=== PATIENT | female | born 1955 | race Caucasian/White ===

== ENCOUNTER 2016-05-07 12:28 | Emergency (ER) | payer BC ==
[2016-05-07 12:48] VITALS: BP 116/84; PULSE 65; RESP 18; TEMP 98.2; O2SAT 99
[2016-05-07] MEDS ORDERED: ONDANSETRON DISINTEGRATING 4 MG TAB PO ONE (13:15)
[2016-05-07] MEDS ORDERED: IBUPROFEN 200 MG TAB PO ONE (13:15)
--- NOTE | 2016-05-07 13:18 | UCPHY ---
H & P Time Seen by Provider: 05/07/16 13:06 Patient Type: Established HPI/ROS: This patient complains of a cough that started last night associated with headache generalized in location similar to previous headaches. She has associated fevers and chills. She also describes myalgias. Finally, she reports nasal congestion associated with the symptoms. No exacerbating or alleviating factors are noted. ROS: No other constitutional symptoms besides those mentioned and HPI. HEENT: No significant ear pain or sore throat. No other complaints pulmonary: No pleuritic pain or respiratory distress. Cardiovascular: No complaints GI: Positive nausea but no vomiting. 10 point ROS is otherwise negative Past Medical/Surgical History: Hypothyroid Anxiety. 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 She is not currently working. Smoking Status: Never smoked Physical Exam: General Appearance: Alert, no distress. Eyes: Pupils equal and round no pallor or injection. ENT, Mouth: Mucous membranes moist. Clear clear nasal discharge. No sinus tenderness to percussion. Ears: External canals and TMs clear bilaterally. Oropharynx is clear with no significant erythema or exudates. Respiratory: There are no retractions, lungs are clear to auscultation. Cardiovascular: Regular rate and rhythm. No murmur gallop or rub. Gastrointestinal: Abdomen is soft and nontender, no masses, bowel sounds normal. Neurological: Alert with no focal deficits Skin: Warm and dry, no rashes. Musculoskeletal: Neck is supple nontender. Extremities are symmetrical, full range of motion. Psychiatric: Mood and affect are normal. DIFFERENTIAL DIAGNOSIS: After history and physical exam differential diagnosis was considered for influenza, URI with cough, viral syndrome Constitutional: Initial Vital Signs Temperature (C) 36.8 C 05/07/16 12:45 Heart Rate 65 05/07/16 12:45 Respiratory Rate 18 05/07/16 12:45 Blood Pressure 116/84 H 05/07/16 12:45 O2 Sat (%) 99 05/07/16 12:45 O2 Delivery Mode Room Air Allergies/Adverse Reactions: morphine Allergy (Verified 05/07/16 12:42) Home Medications: Medication Instructions Recorded DULoxetine [Cymbalta 60 MG (RX)] 08/02/14 Synthroid 88 mcg (RX) 08/02/14 clonAZEPAM [Klonopin] 05/10/15 Albuterol [Proventil Inhaler HFA 1 - 2 puffs IH Q4PRN PRN #1 mdi 03/03/16 (*)] Albuterol Hfa Anes Only [Proair 2 puffs IH Q4 PRN #1 mdi 05/07/16 Hfa Icu (*)] Ondansetron Odt [Zofran Odt] 4 - 8 mg PO Q4PRN PRN #4 tab 05/07/16 Oseltamivir Phosphate [Tamiflu 75 75 mg PO BID #10 cap 05/07/16 mg (*)] MDM/Departure - MDM Diagnostics: Rapid influenza a is positive. Medications Given: Discontinued Medications Ibuprofen (Motrin) 600 mg PO EDNOW ONE Stop: 05/07/16 13:16 Last Admin: 05/07/16 13:35 Dose: 600 mg Ondansetron HCl (Zofran Odt) 4 mg PO EDNOW ONE Stop: 05/07/16 13:16 Last Admin: 05/07/16 13:27 Dose: 4 mg ED Course/Re-evaluation: Counseled patient regarding her influenza. She appears clinically well with normal vital signs despite her symptoms. - Depart Disposition: Home, Routine, Self-Care Clinical Impression: Influenza B, Nausea Condition: Good Instructions: Influenza (ED) Additional Instructions: Diagnoses: 1. Influenza B 2. Nausea Plan: Ibuprofen-600 mg per 6 hours as needed for fevers or aches. Drink plenty fluids Albuterol inhaler for cough, wheeze or shortness of breath Tamiflu antiviral as prescribed Zofran for nausea if needed Return for any significant worsening despite the treatment plan Prescriptions: Albuterol Hfa Anes Only [Proair Hfa Icu (*)] 2 puffs IH Q4 PRN #1 mdi PRN Reason: Wheezing Oseltamivir Phosphate [Tamiflu 75 mg (*)] 75 mg PO BID #10 cap Ondansetron Odt [Zofran Odt] 4 - 8 mg PO Q4PRN PRN #4 tab PRN Reason: Vomiting Referrals: Bertha Frederick MD [Primary Care Provider] - As per Instructions - PQRS PQRS Measurement: NA
== END 2016-05-07 13:53 | disposition home or self-care (01) ==
LOC: CED 12:28
DX: J09.X2 Influenza due to identified novel influenza A virus with other respiratory manifestations (principal); E03.9 Hypothyroidism, unspecified; Z88.5 Allergy status to narcotic agent
CPT/HCPCS: 87400-PO; 99214-PO; G0463-PO

== ENCOUNTER → 2016-09-25 | Outpatient (CLI) | payer BC | LOC: FIMAGING 14:46 | PROVIDERS: ATTEND Internal Medicine | DX: R59.9 Enlarged lymph nodes, unspecified (principal) | CPT/HCPCS: G0204 ==

== ENCOUNTER → 2017-01-05 | Outpatient (CLI) | payer BC ==
[~2017-01-05] MED LIST: GADOBUTROL 10 ML VIAL IVP ONE
== END ==
LOC: FIMAGING 08:56
PROVIDERS: ATTEND Family Medicine Sports Medicine
DX: S83.271A Complex tear of lateral meniscus, current injury, right knee, initial encounter (principal); M22.41 Chondromalacia patellae, right knee; S83.511A Sprain of anterior cruciate ligament of right knee, initial encounter; R60.0 Localized edema; M17.0 Bilateral primary osteoarthritis of knee
CPT/HCPCS: A9585

== ENCOUNTER → 2017-01-31 | Outpatient (CLI) | payer BC | LOC: CIMAGING 10:43 | PROVIDERS: ATTEND Internal Medicine Rheumatology | DX: M19.071 Primary osteoarthritis, right ankle and foot (principal); M89.8X4 Other specified disorders of bone, hand; M25.742 Osteophyte, left hand; M25.741 Osteophyte, right hand; Z98.890 Other specified postprocedural states | CPT/HCPCS: 73120-PO; 73620-PO ==

== ENCOUNTER → 2017-11-14 | Outpatient (CLI) | payer OTHER | LOC: FIMAGING 09:54 | PROVIDERS: ATTEND Internal Medicine Rheumatology | DX: Z13.820 Encounter for screening for osteoporosis (principal); M85.89 Other specified disorders of bone density and structure, multiple sites; E06.3 Autoimmune thyroiditis; Z78.0 Asymptomatic menopausal state; Z87.81 Personal history of (healed) traumatic fracture ==

== ENCOUNTER → 2017-12-31 | Outpatient (CLI) | payer OTHER | LOC: BMCIMAGING 15:13 | PROVIDERS: ATTEND Internal Medicine | DX: Z12.31 Encounter for screening mammogram for malignant neoplasm of breast (principal); Z80.3 Family history of malignant neoplasm of breast ==

== ENCOUNTER → 2018-01-01 | Outpatient (CLI) | payer OTHER | LOC: BMCIMAGING 10:36 | PROVIDERS: ATTEND Internal Medicine Rheumatology | DX: M06.09 Rheumatoid arthritis without rheumatoid factor, multiple sites (principal) ==